=== PATIENT | male | born 1990 | race Caucasian/White ===

== ENCOUNTER 2017-10-25 15:34 | Emergency (ER) | payer MEDICAID ==
[~2017-10-25] VITALS: Ht 180.3 cm; Wt 95.3 kg
[2017-10-25 15:50] VITALS: BP 128/70
--- NOTE | 2017-10-25 16:00 | NUR ---
PT AMBULATED TO OF2.
--- NOTE | 2017-10-25 16:04 | NUR ---
26M BIB SELF C/O PRESSURE TO LEFT FOOT, NON-RADIATING, 03/28 X 2 DAYS; PT STATES " I THOUGHT A MOSQUITO BIT ME OR SOMETHING"; ERYTHEMA/SWELLING NOTED TO LEFT TOP OF FOOT, BELOW 2ND AND 3RD DIGITS AT THIS TIME; NO ACTIVE BLEEDING OR DRAINAGE NOTED FROM SITE AT THIS TIME; LEFT CAP REFILL < 2 SECONDS, +2 LEFT PEDAL PULSE, NO LOSS OF SENSATION TO LEFT FOOT AT THIS TIME; PT AA&OX4, BL LUNG SOUNDS CLEAR, RR EVEN/UNLABORED, SKIN IS WARM/DRY/INTACT; STEADY GAIT; PT RESTING IN OF, POSITIONED FOR COMFORT; ER MD MADE AWARE OF STATUS. WILL CONTINUE TO MONITOR.
--- NOTE | 2017-10-25 16:23 | NUR ---
PT C/O NAUSEA, BUT STATES NO VOMITING OR DIRRHEA AT THIS TIME; ABDOMEN SOFT, NON-TENDER, ACTIVE BOWEL SOUNDS X 4 QUADRANTS.
--- NOTE | 2017-10-25 16:24 | NUR ---
ISAIAS RAINEY EVALUATING PT AT OF.
[2017-10-25] MEDS ORDERED: KETOROLAC 30 MG/ML VIAL IM ONE (16:30)
[2017-10-25] MEDS ORDERED: ceFAZolin 1,000 MG VIAL IM ONE (16:30)
[2017-10-25] MEDS ORDERED: predniSONE 20 MG TAB PO ONE (16:30)
[2017-10-25] MEDS ORDERED: FAMOTIDINE 20 MG TAB PO ONE (16:30)
[2017-10-25] MEDS ORDERED: WATER STERILE 10 ML MC ONE (16:48)
[2017-10-25 17:16] VITALS: BP 133/87
--- NOTE | 2017-10-25 17:16 | NUR ---
Patient discharged with v/s stable. Written and verbal after care instructions given and explained. Patient alert, oriented and verbalized understanding of instructions. Ambulatory with . All questions addressed prior to discharge. ID band removed. Patient advised to follow up with PMD. Rx of BACTRIM DS 800MG-160MG TAB, KEFLEX 500MG CAP & ULTRAM given. Patient educated on indication of medication including possible reaction and side effects. Opportunity to ask questions provided and answered.
== END 2017-10-25 17:16 | disposition home or self-care (01) ==
LOC: MED 15:34
DX: L03.116 Cellulitis of left lower limb (principal); R03.0 Elevated blood-pressure reading, without diagnosis of hypertension
CPT/HCPCS: 96372; 99284; J0690; J1885; J7512

== ENCOUNTER 2017-10-26 18:11 | Inpatient (IN) | payer MEDICAID ==
[~2017-10-26] VITALS: Ht 180.3 cm; Wt 95.3 kg
[2017-10-26 18:52] VITALS: BP 144/84
--- NOTE | 2017-10-26 18:55 | NUR ---
PT TAKEN TO CHAIR B.
--- NOTE | 2017-10-26 18:58 | NUR ---
PATIENT PRESENTS TO ED WITH C/O LT FOOT PAIN/NUMBNESS SINCE TUESDAY;ERYTHEMA/PUS NOTED ON LT FOOT;PT WAS SEEN HERE YESTERDAY,DX W/ CELLULITIS BUT INSTRUCTED TO COME BACK IF SYMPTOMS GET WORSE;DENIES ANY MEDICAL HX;DENIES N/V/D; SKIN IS PINK/WARM/DRY; AAOX4; LUNGS CLEAR BL; HR EVEN AND REGULAR; PT DENIES ANY FEVER, CP, SOB, OR COUGH AT THIS TIME; PATIENT STATES PAIN OF 7/10 AT THIS TIME; ER MD MADE AWARE OF PT STATUS.
[2017-10-26] MEDS ORDERED: NACL 0.9% 1,000 ML IV SCH ×2 (19:24→20:41)
[2017-10-26] MEDS ORDERED: KETOROLAC 30 MG/ML VIAL IVP ONE (19:25)
[2017-10-26] MEDS ORDERED: cefTRIAXone 1,000 MG in DEXT 5% MINI-BAG PLUS 50 ML IV ONE (19:25)
[2017-10-26 19:57] LABS: BASOPHILS # (AUTO) 0.3 K/uL (0.00-0.22); BASOPHILS % (AUTO) 1.8 % (0.0-2.0); EOSINOPHILS # (AUTO) 0.3 K/uL (0-0.4); EOSINOPHILS % (AUTO) 1.9 % (0.0-4.0); HEMATOCRIT 45.8 % (36-52); HEMOGLOBIN 15.4 g/dL (12.0-18.0); LYMPHOCYTES # (AUTO) 2.5 K/uL (2.0-11.5); LYMPHOCYTES % (AUTO) 17.7 % (20.5-51.1); MEAN CORPUSCULAR HEMOGLOBIN 31 pg (27-31); MEAN CORPUSCULAR HGB CONC 34 g/dL (33-37); MEAN CORPUSCULAR VOLUME 92 fL (80-94); MONOCYTES # (AUTO) 0.9 K/uL (0.8-1.0); MONOCYTES % (AUTO) 6.8 % (1.7-9.3); NEUTROPHILS # (AUTO) 9.9 K/uL (1.8-7.7); NEUTROPHILS % (AUTO) 71.8 % (42.2-75.2); PLATELET COUNT (AUTO) 167 K/uL (140-450); RED CELL DISTRIBUTION WIDTH 12.8 % (11.6-13.7); WHITE BLOOD COUNT (AUTO) 13.9 K/uL (4.8-10.8)
[2017-10-26 20:07] LABS: ANION GAP 15.3 (8-16); CARBON DIOXIDE 26.1 mmol/L (21-32); CREATININE 1.2 mg/dL (0.7-1.3); POTASSIUM 3.4 mmol/L (3.5-5.1)
[2017-10-26] MEDS ORDERED: cefTRIAXone 1,000 MG VIAL ONE (20:11)
[2017-10-26 20:19] LABS: ALBUMIN 3.8 g/dL (3.4-5.0); TOTAL BILIRUBIN 0.3 mg/dL (0.0-1.0)
[2017-10-26] MEDS ORDERED: ONDANSETRON 4 MG/2 ML VIAL IVP PRN (20:45)
[2017-10-26] MEDS ORDERED: HYDROcodone/APAP 7.5/325 MG 1 TAB PO PRN (20:45)
[2017-10-26] MEDS ORDERED: ACETAMINOPHEN 325 MG TAB PO PRN (20:45)
[2017-10-26 21:05] VITALS: BP 140/79
--- NOTE | 2017-10-26 21:05 | NUR ---
ADMITTED A 26M FROM ER. CAME BY CESAR ACCOMPANIED BY . ON TELE MONITOR -SR. AWAKE,ALERT AND ORIENTED X4. AMBULATORY . WITH REDNESS AND SWELLING ON THE LT FOOT, DX: CELLULITIS . DENIES ANY PAIN AT THIS TIME.NO OTHER MEDICAL PROBLEM. NO KNOWN ALLERGY. WITH IV ACCESS ON THE LT AC G#18.CLEAR AND PATENT. ORIENTED TO HOSPITAL ROUTINES. PLAN OF CARE DISCUSSED AND VERBALIZED UNDERSTANDING. BED ON LOW POSITION. CALL LIGHT PLACED WITHIN EASY REACH. WILL CONTINUE TO MONITOR.
[2017-10-26] MEDS ORDERED: VANCOMYCIN PER PHARMACY MC PRN (21:10)
--- NOTE | 2017-10-26 21:10 | NUR ---
Patient will be admitted to care of DR. VENEGAS. Admited to TELE. Will go to [id number]. Belongings list completed. Report to BI.
[2017-10-26] MEDS ORDERED: POTASSIUM CHLORIDE 10 MEQ TABER PO SCH (21:25)
[2017-10-26] MEDS ORDERED: LORazepam 2 MG/ML VIAL IVP PRN (21:25)
[2017-10-26 21:39] LABS: CHOL/HDL RATIO 2.8 (1-4.5); FREE T4 (FREE THYROXINE) 0.85 ng/dL (0.76-1.46); PHOSPHORUS 3.9 mg/dL (2.5-4.9); THYROID STIMULATING HORMONE 5.25 uIU/mL (0.34-3.74)
[2017-10-26] MEDS: DOCUSATE SODIUM 100 MG GELCAP PO SCH (21:54)
--- NOTE | 2017-10-26 22:45 | NUR ---
TOOK PICTURE OF THE LT FOOT CELLULITIS.
[2017-10-26] MEDS ORDERED: CLINDAMYCIN 900 MG/6 ML VIAL IV ONE (23:27)
[2017-10-26] MEDS: CLINDAMYCIN 900 MG in DEXTROSE 5% 100 ML IV SCH (23:34)
[2017-10-26 23:50] VITALS: BP 115/66
--- NOTE | 2017-10-27 01:00 | NUR ---
PT IS ASLEEP. NO S/S OF ANY DISCOMFORT NOR PAIN NOTED. WILL CONTINUE TO MONITOR.
--- NOTE | 2017-10-27 02:00 | NUR ---
CLEOCIN WAS STARTED . NO REACTION NOTED. WILL CONTINUE TO MONITOR.
[2017-10-27 03:54] VITALS: BP 116/61
--- NOTE | 2017-10-27 03:57 | NUR ---
VITAL SIGNS TAKEN THIS AM. STABLE. PT NO C/O ANY PAIN A T THIS TIME. WILL CONTINUE TO MONITOR.
--- NOTE | 2017-10-27 04:10 | NUR ---
PT IS AMBULATORY,AND HAS LT FOOT CELLULITIS WITH REDNESS EXTENDING UP TO THE LT LOWER LEG. DR. OSWALD MADE AWARE. HE SAID NO NEED FOR SCD MACHINE.
--- NOTE | 2017-10-27 04:30 | NUR ---
URINE SPECIMEN COLLECTED AND WILL SEND TO LAB FOR UA AND UDS.
[2017-10-27] MEDS ORDERED: CLINDAMYCIN 900 MG/6 ML VIAL IV ONE (04:46)
[2017-10-27] MEDS: CLINDAMYCIN 900 MG in DEXTROSE 5% 100 ML IV SCH ×2 (05:58→12:51)
--- NOTE | 2017-10-27 06:00 | NUR ---
NO C/O PAIN DURING THE NIGHT. WILL CONTINUE TO MONITOR.
[2017-10-27 06:08] LABS: APPEARANCE,URINE CLEAR (CLEAR); BILIRUBIN,URINE NEGATIVE (NEGATIVE); BLOOD, URINE NEGATIVE (NEGATIVE); COLOR,URINE YELLOW (YELLOW); LEUKOCYTE ESTERASE ,URINE NEGATIVE (NEGATIVE); NITRITE, URINE NEGATIVE (NEGATIVE); UGLUCOSE NEGATIVE (NEGATIVE)
[2017-10-27 07:10] LABS: BASOPHILS # (AUTO) 0.3 K/uL (0.00-0.22); BASOPHILS % (AUTO) 3.4 % (0.0-2.0); EOSINOPHILS # (AUTO) 0.3 K/uL (0-0.4); EOSINOPHILS % (AUTO) 3.1 % (0.0-4.0); HEMATOCRIT 39.7 % (36-52); HEMOGLOBIN 13.4 g/dL (12.0-18.0); LYMPHOCYTES # (AUTO) 2.5 K/uL (2.0-11.5); MEAN CORPUSCULAR HEMOGLOBIN 32 pg (27-31); MEAN CORPUSCULAR HGB CONC 34 g/dL (33-37); MEAN CORPUSCULAR VOLUME 93 fL (80-94); MONOCYTES # (AUTO) 0.7 K/uL (0.8-1.0); MONOCYTES % (AUTO) 7.7 % (1.7-9.3); NEUTROPHILS # (AUTO) 5.9 K/uL (1.8-7.7); NEUTROPHILS % (AUTO) 59.8 % (42.2-75.2); PLATELET COUNT (AUTO) 145 K/uL (140-450); RED BLOOD CELL COUNT(AUTO) 4.27 MIL/uL (4.20-6.10); WHITE BLOOD COUNT (AUTO) 9.7 K/uL (4.8-10.8)
--- NOTE | 2017-10-27 07:10 | NUR ---
ENDORSED PT IN STABLE CONDITION TO AM NURSE.
--- NOTE | 2017-10-27 07:15 | NUR ---
ENDORSEMENT RECEIVED FROM SENIOR SOFTWARE QUALITY ANALYST NURSE. PATIENT IS AWAKE, ALERT. RESPIRATION EVEN, UNLABOR ON ROOM AIR. SKIN DRY AND WARM. IV PATENT AND INTACT. PATIENT DENIED PAIN AT THIS TIME. NO DISTRESS NOTED. PLAN OF CARE WAS DISCUSSED WITH PATIENT. BED AT LOW POSITION, LEGS ARE ELEVATED. CALL LIGHT WITHIN REACH
[2017-10-27 07:41] LABS: PHOSPHORUS 3.9 mg/dL (2.5-4.9)
[2017-10-27 07:43] LABS: POTASSIUM 4.2 mmol/L (3.5-5.1)
[2017-10-27 07:44] LABS: ANION GAP 10.4 (8-16); CARBON DIOXIDE 26.8 mmol/L (21-32); CREATININE 1.2 mg/dL (0.7-1.3)
[2017-10-27 08:00] VITALS: BP 115/71
[2017-10-27 08:08] LABS: BARBITURATE, URINE POS ng/ml (NEG <=200); BENZODIAZEPINE, URINE NEG ng/mL (NEG <=200); CANNABINOID, URINE NEG ng/mL (NEG <=50); COCAINE, URINE NEG ng/mL (NEG <=300); OPIATE, URINE NEG ng/mL (NEG <=2000); PHENCYCLIDINE SCREEN,URINE NEG ng/mL (NEG <=25)
[2017-10-27] MEDS: DOCUSATE SODIUM 100 MG GELCAP PO SCH (08:33)
[2017-10-27] MEDS: chlordiazePOXIDE 25 MG CAP PO SCH ×2 (08:33→12:51)
[2017-10-27] MEDS ORDERED: LIB25 PO (08:42)
[2017-10-27] MEDS ORDERED: CLIN300C2 PO (08:42)
[2017-10-27] MEDS ORDERED: FOLI1TAB90 PO (08:42)
[2017-10-27] MEDS ORDERED: ACET-9529 PO (08:42)
[2017-10-27] MEDS ORDERED: DOCU-299 PO (08:42)
[2017-10-27] MEDS ORDERED: THIA-8 PO (08:42)
[2017-10-27] MEDS ORDERED: MULT-405 PO (08:42)
[2017-10-27] MEDS ORDERED: NICO14TD30 TD (08:42)
[2017-10-27] MEDS ORDERED: LACT10CA PO (08:42)
[2017-10-27] MEDS ORDERED: THIAMINE 100 MG TAB PO SCH (09:00)
[2017-10-27] MEDS ORDERED: LACTOBACILLUS RHAMNOSUS GG 1 EACH CAP PO SCH (09:00)
[2017-10-27] MEDS ORDERED: MULTIVITAMIN 1 TAB PO SCH (09:00)
[2017-10-27] MEDS ORDERED: VANCOMYCIN 1GM/DEXT 5% PREMIX 200 ML IV SCH (09:00)
[2017-10-27] MEDS ORDERED: FOLIC ACID 1 MG TAB PO SCH (09:00)
[2017-10-27] MEDS ORDERED: NICOTINE TRANSD SYS 14 MG/24 HR PATCH TD SCH (09:00)
--- NOTE | 2017-10-27 09:04 | NUR ---
PATIENT HAS BEEN SCREENED AND CATEGORIZED LOW NUTRITION RISK. PATIENT WILL BE SEEN WITHIN 7 DAYS OF ADMISSION. 11/01/[address]
[2017-10-27] MEDS ORDERED: NEOMYCIN/POLYMYXIN/BACITRACIN 0.9 GM/1 PKT TP SCH (10:16)
--- NOTE | 2017-10-27 10:32 | NUR ---
PATIENT AWAKE, ALERT. RESPIRATION EVEN, UNLABOR ON ROOM AIR. DENIED PAIN AT THIS TIME. FAMILY AT BEDSIDE, CALL LIGHT WITHIN REAC
--- NOTE | 2017-10-27 10:33 | NUR ---
MAC NOTE PER TUBE WORKER KELSEY, REVIEWS SHOULD ONLY BE SENT TO [facility]. INITIAL REVIEW FAXED TO [facility] [phone] # [phone] [facility] [address] EXT 208, REINFORCING IRON WORKER HELPER GURJIT EXT 207.
--- NOTE | 2017-10-27 11:21 | NUR ---
NEOSPORIN WAS GIVEN BY DR RILEY DURING PROCEDURE. Left foot dressed with topical triple abx, 4x4 gauze, kerlix, and aubree bandage for light compression.
--- NOTE | 2017-10-27 13:15 | NUR ---
CM NOTE RECEIVED CALL FROM [facility] PH# [phone] EXT [phone] WHO SAID THAT WE ARE NOT A CONTRACTED FACILITY AND THEY HAVE TO TRANSFER PATIENT TO CONTRACTED [facility]. I INFORMED DR. HANNA WHO SAID THE PATIENT HAS BEEN SEEN BY [facility] AND THEY ARE DISCHARGING THE PATIENT TODAY. [facility] MADE AWARE.
[2017-10-27] MEDS ORDERED: IBUP-1842 PO (13:17)
--- NOTE | 2017-10-27 14:43 | NUR ---
DISCHARGE INSTRUCTION AND PRESCRIPTION WERE GIVEN TO THE PATIENT. PATIENT VERBALIZED UNDERSTANDING. IV WAS REMOVED, CATHETER INTACT, BLEEDING WAS CONTROLLED, PATIENT TOLERATED WELL. PATIENT REFUSED FLU AND PNEUMO VAC. POST- OP SHOE WAS GIVEN TO THE PATIENT. IV BAND WAS REMOVED. ALL BELONGING WAS TAKEN WITH THE PATIENT. PATIENT AND FAMILY WAS ESCORTED OUT BY STAFF. PATIENT IS STABLE AT THIS TIME
--- NOTE | 2017-10-28 14:36 | NUR ---
MAC NOTE FAXED RESIDENT MUSIC NOTE AND DISCHARGE SUMMARY TO [facility] [phone] # [phone] [facility] EXT [address]. [facility] ROUGHING MILL OPERATOR GURJ[facility] EXT 207 MADE AWARE OF PATIENT'S DISCHARGE TO HOME ON 10/27/17.
== END 2017-10-27 14:47 | disposition home or self-care (01) | DRG 383 ==
LOC: MED 18:11 → MTU 20:45 → UNDOADMIN 20:45 → MTU 21:07
PROVIDERS: ADMIT Family Medicine; ATTEND Family Medicine
DX: L03.116 Cellulitis of left lower limb (principal); E02 Subclinical iodine-deficiency hypothyroidism; E78.5 Hyperlipidemia, unspecified; E87.6 Hypokalemia; E66.3 Overweight; F17.210 Nicotine dependence, cigarettes, uncomplicated; E78.00 Pure hypercholesterolemia, unspecified; Z72.89 Other problems related to lifestyle; Z68.29 Body mass index [BMI] 29.0-29.9, adult; Z82.49 Family history of ischemic heart disease and other diseases of the circulatory system; Z71.6 Tobacco abuse counseling
CPT/HCPCS: 36415; 71045; 76881; 80048; 80053; 80305; 81003; 82150; 83036; 83605; 83690; 83735; 83880; 84100; 84439; 84443; 84484; 85025; 85610; 85730; 87040; 87081; 93005; 96365; 96375; 99285; G0482; J0696; J1885; J3490; J7030; J7060; Q0092